=== PATIENT | female | born 1990 | race Caucasian/White ===

== ENCOUNTER → 2019-12-28 11:36 | Outpatient (CLI) | payer OTHER, SELFPAY ==
[2019-12-28 13:28] LABS: Appearance Urine UA CLEAR; Bilirubin Urine UA NEGATIVE (NEGATIVE); Color Urine UA YELLOW; Glucose Urine UA NEGATIVE (Negative); Ketones Urine UA TRACE (NEGATIVE); Leukocyte Esterase Urine UA NEGATIVE (NEGATIVE); Nitrite Urine UA NEGATIVE (Negative); Occult Blood Urine UA TRACE-LYSED (Negative); Protein Urine UA TRACE (Negative); Urobilinogen Urine UA 0.2 E.U./dL (0.2)
[2019-12-28 13:29] LABS: Alanine Aminotransferase 16 IU/L (<35); Albumin 4.3 g/dL (3.5-5.0); Albumin Globulin Ratio 1.3 (1.0-2.8); Alkaline Phosphatase 49 U/L (38-126); Aspartate Aminotransferase 23 IU/L (14-36); BUN Creatinine Ratio 18.8 (6-22); Bilirubin Total 0.5 mg/dL (0.2-1.3); Blood Urea Nitrogen 12 mg/dL (7-17); Calcium 9.3 mg/dL (8.4-10.2); Carbon Dioxide 27 mmol/L (22-32); Chloride 104 mmol/L (98-107); Estimated Glomerular Filt Rate > 60.0 mL/min (>60); Globulin 3.2 g/dL (1.7-4.1); Glucose 96 mg/dL (70-100); HEMOLYSIS < 15 (0-50); Potassium 3.8 mmol/L (3.4-5.1); Sodium 139 mmol/L (137-145); Total Protein 7.5 g/dL (6.3-8.2)
[2019-12-28 13:46] LABS: Bacteria Urine Occasional (0-1); Culture Indicated Urine Cult Not Indicated; Mucus Urine 2+ (Negative); RBC Urine 1-5/HPF (0-5/HPF); Squamous Epithelial Cell Urine 5-10 /HPF (0-5/HPF); WBC Urine 1-5/HPF (0-5/HPF)
== END ==
PROVIDERS: Referring Provider Nurse Practitioner Family; Visit Provider Nurse Practitioner Family
DX: R10.9 Unspecified abdominal pain (principal); R35.0 Frequency of micturition; B37.9 Candidiasis, unspecified; N39.0 Urinary tract infection, site not specified
CPT/HCPCS: 36415; 80053; 81001

== ENCOUNTER → 2021-12-18 10:07 | Outpatient (CLI) | payer OTHER, SELFPAY ==
--- NOTE | 2021-12-18 | DI.US.S_ITS ---
PROCEDURE: US OB <= 14 WEEKS FETUS INDICATIONS: DATING AND VIABILITY OUTSIDE/PRIOR DATING DATA: Last menstrual period (LMP): 10/22/2021. LMP-based estimated date of delivery (FRANCIS): 07/29/2022. First dating scan (date and location): 12/18/2021. Estimated date of delivery (FRANCIS) from first dating scan: Estimated based on MGSD 08/01/2022. TECHNIQUE: Real-time scanning was performed of the fetus and maternal pelvic organs, with image documentation. Endovaginal scanning was also performed to better visualize the fetus and maternal ovaries. COMPARISON: None. FINDINGS: Embryo: Mean gestational sac diameter 2.7 cm corresponding to estimated gestational age 7 weeks 5 days. A yolk sac is visualized. A 2nd sac which could be the amnion is visualized. No pole at this time. Heart rate: Not applicable. Maternal organs: Ovaries are within normal limits. IMPRESSION: Intrauterine gestational sac corresponding to estimated gestational age of 7 weeks 5 days based on MGSD. No pole at this time. Yolk sac and possible amnion sac is seen. Recommend short-term follow-up OB ultrasound and trending beta hCG. We strive to produce accurate, complete, and clear reports of imaging services. To assist us in improving patient care, this report was composed using standard report templates and voice recognition software. Therefore, it may contain abnormal punctuation, insertions and/or omissions. Occasional wrong-word or sound-alike substitutions may occur. Though we review the report and make efforts to correct it, we do recommend that the report be read carefully in proper context to recognize any text inaccuracies. Dictated by: Nav Lynn M.D. on 12/18/2021 at 10:45 Approved by: Nav Lynn M.D. on 12/18/2021 at 10:48
== END ==
PROVIDERS: PCP Registered Nurse Diabetes Educator; Referring Provider Midwife; Visit Provider Midwife
DX: Z36.87 Encounter for antenatal screening for uncertain dates (principal); Z3A.01 Less than 8 weeks gestation of pregnancy
CPT/HCPCS: 76801; 76817

== ENCOUNTER → 2022-01-28 13:09 | Outpatient (CLI) | payer OTHER, SELFPAY ==
[2022-01-28 13:43] LABS: Add Manual Diff / Slide Review NO; Basophils Absolute Auto 100 /uL (0-100); Eosinophils Absolute Auto 100 /uL (0-450); Eosinophils Percent Auto 1.8 % (2-4); Hematocrit 28.7 % (36-46); Hemoglobin 10.1 g/dL (12.0-16.0); Lymphocytes Absolute Auto 1600 /uL (1100-4500); Lymphocytes Percent Auto 30.2 % (25-40); Mean Corpuscular HGB Conc 35.3 % (30-36); Mean Corpuscular Volume 90.8 fL (80-100); Monocytes Absolute Auto 400 /uL (0-900); Monocytes Percent Auto 6.8 % (3-14); Neutrophils Absolute Auto 3200 /uL (1500-7000); Neutrophils Percent Auto 60.2 % (50-75); Platelet Count 408 X10^3/uL (150-400); Red Blood Cell Count 3.17 X10^6/uL (4.0-5.2); Red Cell Distribution Width 14.4 % (11.6-14.8); White Blood Cell Count 5.3 X10^3/uL (4.5-11.0)
[2022-01-28 13:55] LABS: Erythrocyte Sedimentation Rate 31 MM/HR (0-20)
[2022-01-28 14:19] LABS: Alanine Aminotransferase 14 IU/L (<35); Albumin 4.2 g/dL (3.5-5.0); Albumin Globulin Ratio 1.4 (1.0-2.8); Alkaline Phosphatase 53 U/L (38-126); Aspartate Aminotransferase 20 IU/L (14-36); Bilirubin Total 0.5 mg/dL (0.2-1.3); Blood Urea Nitrogen 7 mg/dL (7-17); Calcium 9.1 mg/dL (8.4-10.2); Carbon Dioxide 31 mmol/L (22-32); Chloride 105 mmol/L (98-107); Estimated Glomerular Filt Rate > 60 mL/min (>60); Globulin 2.9 g/dL (1.7-4.1); Glucose 95 mg/dL (70-100); HEMOLYSIS < 15 (0-50); Potassium 4.6 mmol/L (3.4-5.1); Sodium 139 mmol/L (137-145); Total Protein 7.1 g/dL (6.3-8.2)
[2022-01-28 14:24] LABS: Bilirubin Direct 0.1 mg/dL (0.0-0.4); Bilirubin Total 0.4 mg/dL (0.2-1.3); C-Reactive Protein Quant < 0.5 mg/dL (<1.0)
[2022-01-28 14:35] LABS: HCG Quantitative /Beta subunit 13.1 mIU/mL
[2022-01-28 14:49] LABS: TSH w/ Reflex to FT4 1.85 uIU/mL (0.47-4.68)
[2022-01-30 04:40] LABS: HBsAg Screen Negative (Negative); Hepatitis A Antibody IgM Negative (Negative); Hepatitis B Core Antibody IgM Negative (Negative); Hepatitis C Antibody <0.1 s/co ratio (0.0-0.9)
== END ==
PROVIDERS: PCP Registered Nurse Diabetes Educator; Referring Provider Registered Nurse Diabetes Educator; Visit Provider Registered Nurse Diabetes Educator
DX: O02.1 Missed abortion (principal); D64.9 Anemia, unspecified; R17 Unspecified jaundice; R53.83 Other fatigue; R74.8 Abnormal levels of other serum enzymes
CPT/HCPCS: 36415; 80053; 80074; 82247; 82248; 84443; 84702; 85025; 85651; 86140

== ENCOUNTER → 2022-12-02 14:45 | Outpatient (CLI) | payer OTHER, SELFPAY ==
[2022-12-02 16:46] LABS: Prolactin 12.8 ng/mL (3.0-18.6)
[2022-12-02 16:59] LABS: Thyroid Stimulating Hormone 1.67 uIU/mL (0.47-4.68)
[2022-12-02 20:01] LABS: Progesterone, Total 1.47 ng/mL
[2022-12-03 05:19] LABS: x Labcorp Estim. Avg Glu (eAG) 100 mg/dL (.); x Labcorp Hemoglobin A1c 5.1 % (4.8-5.6)
[2022-12-05 15:58] LABS: Dilute Russell Viper Venom 25.8 sec (0.0-47.0); Lupus Reflex Interpretation Comment: (.); PTT-LA 33.6 sec (0.0-43.5)
[2022-12-12 18:26] LABS: Cardiolipin IgA Negative (.)
== END ==
PROVIDERS: PCP Registered Nurse Diabetes Educator; Referring Provider Obstetrics & Gynecology; Visit Provider Obstetrics & Gynecology
DX: N96 Recurrent pregnancy loss (principal)
CPT/HCPCS: 36415; 81240; 81241; 81291; 83036; 83520; 84144; 84146; 84439; 84443; 85598; 85613; 86147; 86148

== ENCOUNTER → 2022-12-23 14:35 | Outpatient (CLI) | payer OTHER, SELFPAY ==
[2022-12-23 15:37] LABS: HCG Quantitative /Beta subunit 2505.3 mIU/mL
== END ==
PROVIDERS: PCP Registered Nurse Diabetes Educator; Referring Provider Obstetrics & Gynecology; Visit Provider Obstetrics & Gynecology
DX: N91.2 Amenorrhea, unspecified (principal); N96 Recurrent pregnancy loss
CPT/HCPCS: 36415; 84144; 84702

== ENCOUNTER → 2022-12-25 16:06 | Outpatient (CLI) | payer OTHER, SELFPAY ==
[2022-12-25 17:21] LABS: HCG Quantitative /Beta subunit 6940 mIU/mL
== END ==
PROVIDERS: PCP Registered Nurse Diabetes Educator; Referring Provider Obstetrics & Gynecology; Visit Provider Obstetrics & Gynecology
DX: N91.2 Amenorrhea, unspecified (principal); N96 Recurrent pregnancy loss
CPT/HCPCS: 36415; 84702

== ENCOUNTER → 2023-03-04 11:31 | Outpatient (CLI) | payer OTHER, SELFPAY ==
[2023-03-04 13:24] LABS: Add Manual Diff / Slide Review NO; Basophils Absolute Auto 0 /uL (0-100); Basophils Percent Auto 0.5 % (0-2); Eosinophils Absolute Auto 100 /uL (0-450); Eosinophils Percent Auto 0.5 % (2-4); Hematocrit 37.4 % (36-46); Hemoglobin 13.1 g/dL (12.0-16.0); Lymphocytes Absolute Auto 1900 /uL (1100-4500); Lymphocytes Percent Auto 18.3 % (25-40); Mean Corpuscular Hemoglobin 31.9 PG (26-34); Mean Corpuscular Volume 91.1 fL (80-100); Monocytes Absolute Auto 600 /uL (0-900); Monocytes Percent Auto 5.5 % (3-14); Neutrophils Absolute Auto 7800 /uL (1500-7000); Neutrophils Percent Auto 75.2 % (50-75); Platelet Count 356 X10^3/uL (150-400); Red Blood Cell Count 4.11 X10^6/uL (4.0-5.2); Red Cell Distribution Width 12.9 % (11.6-14.8); White Blood Cell Count 10.4 X10^3/uL (4.5-11.0)
[2023-03-05 10:13] LABS: Varicella IgG Antibody 1198 index (Immune >165)
[2023-03-05 16:14] LABS: Hepatitis B Surface Antigen NEGATIVE s/c (NEGATIVE)
[2023-03-05 16:15] LABS: HIV 1 & 2 Ab/Ag 4th Gen Combo NEGATIVE (NEGATIVE); Hep C Virus Ab w/Reflex Quant NEGATIVE s/c (NEGATIVE)
[2023-03-19 10:16] LABS: RPR Screen REACTIVE
[2023-03-19 10:24] LABS: RPR Quant + RPR Abs NON REACTIVE
== END ==
PROVIDERS: PCP Registered Nurse Diabetes Educator; Referring Provider Obstetrics & Gynecology; Visit Provider Obstetrics & Gynecology
DX: Z34.81 Encounter for supervision of other normal pregnancy, first trimester (principal)
CPT/HCPCS: 36415; 80055; 86787; 86803; 86850; 86900; 86901; 87389